=== PATIENT | female | born 1990 | race Caucasian/White ===

== ENCOUNTER 2023-09-21 20:53 | Outpatient (REF) | payer OTHER, SELFPAY ==
[2023-09-29 20:09] LABS: Age Gdln ACOG Testing Note (.); HPV Aptima Negative (Negative); IGP, Aptima HPV, rfx 16/18,45 Note (.)
== END 2023-09-21 20:54 | disposition home or self-care (01) ==
LOC: LAB 20:53
PROVIDERS: PCP Family Medicine; Visit Provider Obstetrics & Gynecology
DX: Z01.419 Encounter for gynecological examination (general) (routine) without abnormal findings (principal)
CPT/HCPCS: 87624; G0145

== ENCOUNTER 2023-10-30 17:18 | Emergency (ER) | payer OTHER, SELFPAY ==
[2023-10-30 17:24] VITALS: BP 151/87; PULSE 77; TEMP 37.3; O2SAT 100
--- NOTE | 2023-10-30 18:55 | ED_ITS ---
HPI - Skin/Abscess/Foreign Bdy General Chief complaint: Skin/Abscess/Foreign Body Stated complaint: rash, weak Time Seen by Provider: 10/30/23 18:06 Source: patient Mode of arrival: walk-in Limitations: no limitations History of Present Illness HPI narrative: The patient is complaining of rash that been going on at least since yesterday she noted this rash in the upper extremity only in the back of the neck, alth ough she mentioned that the rash is not itching and she did not notice the 1 in the back of her neck until she was told by the triage nurse. The patient just feeling generally weak and tired. When asked about sun exposure the patient mentioned that she did not have anything done over the last 2 days that is out of her ordinary Related Data Allergies Allergy/AdvReac Type Severity Reaction Status Date / Time No Known Drug Allergies Allergy Verified 10/30/23 17:22 Review of Systems ROS Status of ROS 10 or more systems reviewed and unremark able except as noted in history and below Exam Narrative Exam Narrative: Nurses notes and vital signs reviewed and patient is not hypoxic. General: Well-appearing and in no apparent distress. Skin: Warm, dry, no pallor noted. No rash. Head: Normocephalic, atraumatic. Neck: Supple, non-tender. Eye: Pupils are equal, round and EOMI. No scleral icterus. Ears, Nose, Mouth, and Throat: TM are clear, no nasal mucosal hypertrophy. Oral mucosa is moist, no posterior oropharynx erythema, uvula is mid-line Cardiovascular: Regular Rate and Rhythm without murmur, gallop or rub. Respiratory: No accessory muscle use or respiratory distress. Lungs are clear to auscultation, no wheezing, rales or rhonchi Chest Wall: no tenderness Back: No midline thoracic or lumbar vertebral tenderness. No CVA tenderness Musculoskeletal: normal ROM, no calf or popliteal tenderness, no lower extremity edema/swelling GI: Abdomen is soft, non-distended. Normal bowel sounds. No masses appreciated. No tenderness to palpation. No rebound, guarding, or rigidity noted. Neurological: A&O x4. No cranial nerve dysfunction observed. No truncal ataxia. Moves all extremities. Sensation intact. Psychiatric: Cooperative and interactive. Normal mood and affect. Skin examination showed that the patient have brownish like macular rash scattered over the upper extremities Constitutional Vital Signs, click to edit/add: Last Vital Signs Temp 99.2 F 10/30/23 17:24 Pulse 77 10/30/23 17:24 Resp 17 10/30/23 17:24 BP 151/87 H 10/30/23 17:24 Pulse Ox 100 10/30/23 17:24 Course Vital Signs Vital signs: Vital Signs Temperature 99.2 F 10/30/23 17:24 Pulse Rate 77 10/30/23 17:24 Respiratory Rate 17 10/30/23 17:24 Blood Pressure 151/87 H 10/30/23 17:24 Pulse Oximetry 100 10/30/23 17:24 Temperature 99.2 F 10/30/23 17:24 Pulse Rate 77 10/30/23 17:24 Respiratory Rate 17 10/30/23 17:24 Blood Pressure 151/87 H 10/30/23 17:24 Pulse Oximetry 100 10/30/23 17:24 MDM - Skin/Abscess/Foreign Bdy MDM Narrative Medical decision making narrative: CBC and chemistry are pending the patient will be transferred to Dr. Gaston Discharge Plan Discharge Patient Disposition: Still a Patient
[2023-10-30 19:20] LABS: Basophils Percent Auto 0.5 % (0.2-2.0); Eosinophils Absolute Auto 0.1 10^3/uL (0.0-0.7); Eosinophils Percent Auto 0.7 % (0.9-7.0); Hematocrit 39.4 % (36.0-48.0); Hemoglobin 13.2 g/dL (12.0-16.0); Immature Granulocytes Abs Auto 0.01 10^3/uL (0.00-0.03); Immature Granulocytes Pct Auto 0.1 % (0.0-0.5); Lymphocytes Absolute Auto 2.6 10^3/uL (1.2-3.8); Lymphocytes Percent Auto 29.9 % (20.5-60.0); Mean Corpuscular HGB Conc 33.5 g/dL (29.9-35.2); Mean Corpuscular Hemoglobin 30.1 pg (26.7-34.0); Mean Platelet Volume 10.7 fL (9.5-13.5); Monocytes Absolute Auto 0.6 10^3/uL (0.3-0.8); Monocytes Percent Auto 6.4 % (1.7-12.0); Neutrophils Absolute Auto 5.5 10^3/uL (1.4-6.5); Neutrophils Percent Auto 62.4 % (43.0-75.0); Platelet Count 270 10^3/uL (150-450); Red Blood Count 4.38 10^6/uL (4.20-5.40); Red Cell Distribution Width 12.1 % (11.0-15.0); White Blood Count 8.7 10^3/uL (4.0-11.0)
[2023-10-30 20:13] LABS: Alanine Aminotransferase 55 U/L (14-59); Albumin Level 3.8 g/dL (3.4-5.0); Alkaline Phosphatase 64 U/L (46-116); Anion Gap 14.6; Aspartate Amino Transferase 26 U/L (15-37); BUN Creatinine Ratio 15.9; Bilirubin Total 0.4 mg/dL (0.2-1.0); Calcium 8.7 mg/dL (8.5-10.1); Carbon Dioxide 26.4 mmol/L (21.0-32.0); Chloride 103 mmol/L (98-107); Estimated GFR (African America >60 (>=60); Estimated GFR (Non-African Ame >60 (>=60); Globulin 3.9 g/dL; Glucose 95 mg/dL (74-106); Sodium 140 mmol/L (136-145); Total Protein 7.7 g/dL (6.4-8.2)
--- NOTE | 2023-10-30 20:18 | ED_ITS ---
HPI - Skin/Abscess/Foreign Bdy General Chief complaint: Skin/Abscess/Foreign Body Stated complaint: rash, weak Time Seen by Provider: 10/30/23 18:06 Source: patient Mode of arrival: walk-in Limitations: no limitations History of Present Illness HPI narrative: 33-year-old female presents to the emergency department for ration was initially seen by Dr. Carter and signed out to me after discussing the case with her th oroughly. Please see her full history and physical exam. Related Data Allergies Allergy/AdvReac Type Severity Reaction Status Date / Time No Known Drug Allergies Allergy Verified 10/30/23 17:22 Exam Constitutional Vital Signs, click to edit/add: Last Vital Signs Temp 99.2 F 10/30/23 17:24 Pulse 77 10/30/23 17:24 Resp 17 10/30/23 17:24 BP 151/87 H 10/30/23 17:24 Pulse Ox 100 10/30/23 17:24 Course Vital Signs Vital signs: Vital Signs Temperature 99.2 F 10/30/23 17:24 Pulse Rate 77 10/30/23 17:24 Respiratory Rate 17 10/30/23 17:24 Blood Pressure 151/87 H 10/30/23 17:24 Pulse Oximetry 100 10/30/23 17:24 Temperature 99.2 F 10/30/23 17:24 Pulse Rate 77 10/30/23 17:24 Respiratory Rate 17 10/30/23 17:24 Blood Pressure 151/87 H 10/30/23 17:24 Pulse Oximetry 100 10/30/23 17:24 MDM - Skin/Abscess/Foreign Bdy MDM Narrative Medical decision making narrative: Blood work is negative. The rash is asymptomatic, no itching or pain. She will follow-up with her doctor if it does not improve. Cause uncertain. Treatment diagnosis and follow-up were discussed with the patient. Differential Diagnosis Differential diagnosis: Likely viral exanthem, allergic reaction to drug, cellulitis, insect bites and contact dermatitis Lab Data Attestation: I reviewed the patient's lab results. Labs: Lab Results 10/30/23 Range/Units 19:07 WBC 8.7 (4.0-11.0) 10^3/uL RBC 4.38 (4.20-5.40) 10^6/uL Hgb 13.2 (12.0-16.0) g/dL Hct 39.4 (36.0-48.0) % MCV 90.0 (81.0-99.0) fL MCH 30.1 (26.7-34.0) pg MCHC 33.5 (29.9-35.2) g/dL RDW 12.1 (11.0-15.0) % Plt Count 270 (150-450) 10^3/uL MPV 10.7 (9.5-13.5) fL Neut % (Auto) 62.4 (43.0-75.0) % Lymph % (Auto) 29.9 (20.5-60.0) % [place] % (Auto) 6.4 (1.7-12.0) % Eos % (Auto) 0.7 L (0.9-7.0) % Baso % (Auto) 0.5 (0.2-2.0) % Neut # (Auto) 5.5 (1.4-6.5) 10^3/uL Lymph # (Auto) 2.6 (1.2-3.8) 10^3/uL [place] # (Auto) 0.6 (0.3-0.8) 10^3/uL Eos # (Auto) 0.1 (0.0-0.7) 10^3/uL Baso # (Auto) 0.0 (0.0-0.1) 10^3/uL Abs Immat Gran (auto) 0.01 (0.00-0.03) 10^3/uL Imm/Tot Granulo (auto) 0.1 (0.0-0.5) % Sodium 140 (136-145) mmol/L Potassium 4.0 (3.5-5.1) mmol/L Chloride 103 (98-107) mmol/L Carbon Dioxide 26.4 (21.0-32.0) mmol/L Anion Gap 14.6 BUN 11.0 (7.0-18.0) mg/dL Creatinine 0.69 (0.55-1.02) mg/dL Est GFR ( Amer) >60 (>=60) Est GFR (Non-Af Amer) >60 (>=60) BUN/Creatinine Ratio 15.9 Glucose 95 (74-106) mg/dL Calcium 8.7 (8.5-10.1) mg/dL Total Bilirubin 0.4 (0.2-1.0) mg/dL AST 26 (15-37) U/L ALT 55 (14-59) U/L Alkaline Phosphatase 64 (46-116) U/L Total Protein 7.7 (6.4-8.2) g/dL Albumin 3.8 (3.4-5.0) g/dL Globulin 3.9 g/dL Albumin/Globulin Ratio 1.0 Discharge Plan Discharge Stand Alone Forms: Portal Instructions Chief Complaint: Skin/Abscess/Foreign Body Clinical Impression: Rash Patient Disposition: Home, Self-Care Time of Disposition Decision: 20:18 Condition: Good Mode of Transportation: Private Vehicle Print Language: Czech Instructions: Acute Rash (ED) Referrals: Caitlin POLLOCK [Primary Care Provider] - 1 week
== END 2023-10-30 20:21 | disposition home or self-care (01) ==
PROVIDERS: Emergency Medicine; Emergency Provider Emergency Medicine; PCP Family Medicine
DX: R21 Rash and other nonspecific skin eruption (principal)
CPT/HCPCS: 36415; 80053; 85025; 99283

== ENCOUNTER 2024-06-08 17:00 | Emergency (ER) | payer OTHER, SELFPAY ==
[2024-06-08 17:33] VITALS: BP 133/79; PULSE 74; TEMP 36.8; O2SAT 100; BMI 36.0
--- NOTE | 2024-06-08 19:33 | ED_ITS ---
HPI HPI - General Adult General Chief complaint: Eye Problems Stated complaint: sinus, eye problems, sore throat Time Seen by Provider: 06/08/24 19:04 Source: patient Mode of arrival: walk-in History of Present Illness HPI narrative: This 34-year-old female presents for evaluation of swelling and redness to the left eye. The patient states that her kids have been sick with viral illnesses for the past 1 to 2 weeks and she caught the same illness. She figured it was just a viral illness and has not sought any medical care until earlier today when she went to [facility] urgent care for left eye swelling with discharge. The patient does not wear contact lenses. She states she has a sharp stabbing sensation in her eye when she woke up earlier today her eye was matted shut. She use warm compresses on it to remove the matting. She has also had popping sensation in her ears. She has had some drainage down her throat. When her symptoms started she had some fevers. She does not have any redness on her face . She denies any chest pain or shortness of breath. She denies the possibility of . Related Data Home Medications ?Medication ?Instructions ?Recorded ?Confirmed B12 injuection IM .monthly 06/08/24 ibuprofen 800 mg tablet mg 06/08/24 levothyroxine 100 mcg tablet mcg 06/08/24 Allergies Allergy/AdvReac Type Severity Reaction Status Date / Time No Known Drug Allergies Allergy Verified 06/08/24 17:43 Opioid HPI Opioid Management Most Recent Opioid Data: No Data to Display Review of Systems ROS Status of ROS 10 or more systems reviewed and unremark able except as noted in history and below PFSH PFSH Social History Little interest or pleasure in doing things: not at all Feeling down, depressed, or hopeless: not at all Exam Narrative Exam Narrative: Vital signs and Nursing Notes reviewed: Patient is afebrile with a normal pulse, normal blood pressure, she is not hypoxic with pulse ox of 100% on room air General: Awake, alert, oriented, no acute distress, lying comfortably on the stretcher HEENT: Normocephalic atraumatic, mucous membranes are moist and pink, pupils are equal and reactive, there is conjunctival injection with mild upper lid edema on the left eye. Extraocular muscles are intact. The patient does not complain of any pain with extraocular movement. There is no redness or swelling on her face. There is mild tenderness over her frontal and maxillary sinuses. Clear postnasal drip is noted. There is no swelling of the tongue, uvula or pharyngeal soft tissues. Tympanic membranes are clear bilaterally Neck: Supple, no meningeal signs, no anterior or posterior cervical lymphadenopathy Chest: Lungs are clear to auscultation with good air entry, there is no wheezing rhonchi or rales appreciated no accessory muscle use, patient is speaking in complete sentences-no chest wall tenderness to palpation CVS: Regular rate and rhythm S1-S2, no murmurs rubs or gallops, pulses are brisk and equal bilaterally ABD: Soft, nondistended, nontender, no rebound guarding or rigidity, bowel sounds are normal, no pulsatile masses appreciated Extremities: Moving all extremities, no lower extremity tenderness or swelling noted, negative Homans' sign, pulses are brisk and equal bilaterally Skin: Normal in appearance without rash,pallor, petechiae or purpura Neuro: No focal deficits Constitutional Vital Signs, click to edit/add: Last Vital Signs Temp 98.3 F 06/08/24 17:33 Pulse 74 06/08/24 17:33 Resp 16 06/08/24 17:33 BP 133/79 06/08/24 17:33 Pulse Ox 100 06/08/24 17:33 O2 Del Method Room Air 06/08/24 17:33 Course Vital Signs Vital signs: Vital Signs Temperature 98.3 F 06/08/24 17:33 Pulse Rate 74 06/08/24 17:33 Respiratory Rate 16 06/08/24 17:33 Blood Pressure 133/79 06/08/24 17:33 Pulse Oximetry 100 06/08/24 17:33 Oxygen Delivery Method Room Air 06/08/24 17:33 Temperature 98.3 F 06/08/24 17:33 Pulse Rate 74 06/08/24 17:33 Respiratory Rate 16 06/08/24 17:33 Blood Pressure 133/79 06/08/24 17:33 Pulse Oximetry 100 06/08/24 17:33 Oxygen Delivery Method Room Air 06/08/24 17:33 Medical Decision Making MDM Narrative Medical decision making narrative: This patient presents with swelling and redness of the left eye with matting from the left eye upon awakening this morning. She was referred to the emergency department from urgent care for concern of cellulitis. There is no clinical suspicion of cellulitis in my opinion. She does not have any redness or swelling. She is tender over the frontal and maxillary sinuses, she has clear nasal drip, the right conjunctiva is injected without any notable tearing. She does not wear contact lenses. There was no drainage appreciated. She does not have any foreign body sensation but states she has a sharp stabbing sensation in her eye from time to time. I offered her blood work and CT scanning of the sinuses and orbits but she declines at this time stating that she is hungry and wants to get home to her kids. She will be empirically treated with ofloxacin eye suspension for the conjunctivitis and doxycycline for sinusitis. She states she has an appointment with her doctor next week. She was encouraged to return to the emergency department or follow-up with outpatient ophthalmology for ongoing or worsening ophthalmologic issues, change in her vision, increased swelling or redness on her face. She is in agreement with this plan. She was medicated emergency department with a dose of ibuprofen, ofloxacin ophthalmologic suspension and first dose of doxycycline. She will be discharged home with prescription for doxycycline and ibuprofen. Discharge Plan Discharge Chief Complaint: Eye Problems Clinical Impression: Sinusitis, acute, Conjunctivitis Patient Disposition: Home, Self-Care Time of Disposition Decision: 19:30 Condition: Good Prescriptions / Home Meds: No Action ibuprofen 800 mg tablet levothyroxine 100 mcg tablet B12 injuection IM .monthly Print Language: Greek Instructions: Sinusitis (ED), Conjunctivitis (ED) Additional Instructions: Apply 1 drop of antibiotic eyedrops to the left eye twice daily for 7 days. Please follow-up with outpatient ophthalmology if you continue to have eye pain or swelling in 24 to 72 hours. Referrals: Caitlin POLLOCK [Primary Care Provider] - 1 week
[2024-06-08] MEDS: DOXYCYCLINE MONOHYDRATE 100 MG CAPSULE PO (19:44)
[2024-06-08] MEDS: IBUPROFEN 600 MG TABLET PO (19:45)
[2024-06-08] MEDS: OFLOXACIN 0.3% OP SOL 100 DROP/5 ML BOTTLE OP (19:45)
[2024-06-08 19:49] VITALS: BP 120/74; PULSE 77; O2SAT 98
== END 2024-06-08 19:50 | disposition home or self-care (01) ==
PROVIDERS: Emergency Provider Emergency Medicine; PCP Family Medicine
DX: H10.32 Unspecified acute conjunctivitis, left eye (principal); J01.90 Acute sinusitis, unspecified
CPT/HCPCS: 99283

== ENCOUNTER 2024-09-25 20:43 | Outpatient (REF) | payer OTHER, SELFPAY ==
[2024-09-29 20:09] LABS: Age Gdln ACOG Testing Note (.); HPV Aptima Positive (Negative); HPV Genotype 16 Negative (Negative); HPV Genotype 18,45 Negative (Negative); IGP, Aptima HPV, rfx 16/18,45 Note (.)
== END 2024-09-25 20:44 | disposition home or self-care (01) ==
LOC: LAB 20:43
PROVIDERS: PCP Family Medicine; Visit Provider Obstetrics & Gynecology
DX: Z01.419 Encounter for gynecological examination (general) (routine) without abnormal findings (principal)
CPT/HCPCS: 87624; 87625; 88175